=== PATIENT | male | born 1955 | race African-American/Black ===

== ENCOUNTER 2017-04-04 10:40 | Outpatient (CLI) | payer MEDICARE, OTHER ==
[~2017-04-04] VITALS: Ht 188 cm; Wt 109.1 kg
--- NOTE | ~2017-04-04 | HEMODYNAMI ---
PATIENT:TOM MARQUEZ MEDICAL RECORD: [id number] : 51 LOCATION:D.CAT ADMISSION DATE: 04/04/17 Generatedon:04/04/201713:41 Patient name: TOM MARQUEZ Patient #: [id number] SSN: : 1955 Date of study: 04/04/2017 Page: Of Hemodynamic Procedure Report Patient Data Patient Demographics Procedure consent was obtained First Name: TOM Gender: Male Last Name: ALMA : 1955 Middle Initial: F Age: 62 year(s) Patient #: [id number] Race: Black Additional ID: [id number] Contact details Address: [address] State: [place] City: [place] Zip code: [address] Past Medical History Allergies Allergen Reaction Date Comments Reported IV contrast dye 04/04/2017 IV contrast dye 04/04/2017 Iodine 04/04/2017 Admission Admission Data Admission Date: 04/04/2017 Admission Time: 10:40 Height (in.): 72 BSA: 2.3 (m2) Height (cm.): 182.88 BMI: 32.55 (kg/m2) Weight (lbs.): 240 Weight (kg.): 108.86 Lab Results Lab Result Date: 04/04/2017 Lab Result Time: 0:00 Biochemistry Name Units Result Min Max BUN mg/dl 36 --(----)-* 7 18 Creatinine mg/dl 10.5 --(----)-* 0.6 1.3 CBC Name Units Result Min Max Hemoglobin g/dl 11.5 *-(----)-- 13.5 17.5 Procedure Procedure Types Cath Procedure Diagnostic Procedure [facility] w/Coronaries Aortic Root Angiography Miscellaneous Procedures Moderate Sedation up to 15 minutes Procedure Description Procedure Date Procedure Date: 04/04/2017 Procedure Start Time: 13:23 Procedure End Time: 13:41 Procedure Staff Name Function Anton Koch MD Performing Physician Maryse Snell RT Monitor Mounika Hall RT Scrub Damian Britton RN Nurse Procedure Data Cath Procedure Contrast Material Contrast Material Type Amount (ml) Isovue 300 85 Entry Location Entry Primary Successful Side Size Upsize Upsize Entry Closure Succes sful Closure Location (Fr) 1 (Fr) 2 (Fr) Remarks Device Remarks Femoral Right 5 Fr Exoseal vein Estimated blood loss: 5 ml Diagnostic catheters Device Type Used For End Catheter Placement MULTIPACK JL 4.0 5Fr Procedure catheter DIAGNOSTIC JL 5 5Fr Procedure catheter ([id number]) MULTIPACK 3DRC 5Fr Procedure catheter MULTIPACK Pigtail 5 Fr Procedure catheter Procedure Complications No complications Procedure Medications Medication Administration Route Dosage Oxygen NC 2 l/min Heparin Flush Bag added to field 2 bags (1000units/500ml NS) 0.9% NaCl I.V. 100 ml/hr Fentanyl I.V. 50 mcg Versed I.V. 1 mg Fentanyl I.V. 50 mcg Versed I.V. 1 mg Hemodynamics Rest BSA: 2.3 (m2) HGB: 11.5 (g/dl) O2 Consumption: Estimated: 266.53 (ml/min) O2 Con sumption indexed: Estimated:115.88 (ml/min/m) Heart Rate: 68 (bpm) Pressure Samples Time Site Value (mmHg) Purpose Heart Use Rate(bpm) 13:34 LV 90/-14,1 Snapshot 55 13:35 AO 96/55(74) Pullback 66 13:35 LV 81/-7,9 Pullback 66 Gradients Valve Time Site 1 Site 2 Mean SEP/DFP Peak To Heart Use (mmHg) (sec/min) Peak Rate (mmHg) (bpm) Aortic 13:35 LV AO 0 17 0 66 81/-7,9 96/55(74) Calculations Valve P-P Mean Valve Index Valve Source Name Gradient Area Flow (cm2) Aortic 0 0 0 0 Snapshots Pre Cath Intra NCS Post Cath Vital Signs Time Heart Resp SPO2 etCO2 NIBP Rhythm Pain Sedation Rate (ipm) (%) (mmHg) (mmHg) Status Level (bpm) 13:02:34 65 29 100 0 111/73(88) NSR 0 (11) 10(A) , No pain 13:06:44 64 19 99 116/76(93) NSR 0 (11) 10(A) , No pain 13:10:53 65 16 99 27 101/70(85) NSR 0 (11) 10(A) , No pain 13:14:59 64 17 100 21 107/72(89) NSR 0 (11) 10(A) , No pain 13:19:07 64 18 100 37.5 112/69(80) NSR 0 (11) 10(A) , No pain 13:23:17 66 17 100 18 103/68(84) NSR 0 (11) 9(A) , No pain 13:27:25 65 16 100 33 99/66(78) NSR 0 (11) 9(A) , No pain 13:31:29 66 17 100 39.8 105/71(88) NSR 0 (11) 9(A) , No pain 13:35:36 66 16 100 20.2 101/66(80) NSR 0 (11) 9(A) , No pain 13:39:42 66 19 100 37.5 108/71(84) NSR 0 (11) 9(A) , No pain Medications Time Medication Route Dose Verified Delivered Reason Notes Effec tiveness by by 13:06:43 Oxygen NC 2 Anton Damian Per l/min August Britton RN physician 13:06:51 Heparin Flush added 2 Anton Damian used for Bag to bags August Britton label stitcher (1000units/500ml field NS) 13:06:59 0.9% NaCl I.V. 100 Anton Damian Per ml/hr August Britton RN physician 13:11:09 Fentanyl I.V. 50 Anton Damian for mcg August Britton RN sedation 13:11:15 Versed I.V. 1 mg Anton Damian for August Britton RN sedation 13:19:56 Fentanyl I.V. 50 Anton Damian for mcg August Britton RN sedation 13:20:00 Versed I.V. 1 mg Anton Damian for August Britton RN sedation Procedure Log Time Note 12:16:35 Patient Height : 72 inches 12:16:41 Patient Weight : 240 lbs 12:17:49 Diagnostic Cath status Elective 12:17:56 Time tracking: Regular hours 12:18:01 Plan of Care:Hemodynamics will remain stable., Cardiac rhythm will remain stable., Comfort level will be maintained., Respiratory function will remain adequate., Patient/ family verbilizes understanding of procedure., Procedure tolerated without complication., Recovers from procedure without complications.. 12:42:07 Damian Britton RN sent for patient. Start room use. 12:43:46 Lab Result : BUN 36 mg/dl 12:43:46 Lab Result : Creatinine 10.5 mg/dl 12:43:46 Lab Result : Hemoglobin 11.5 g/dl 12:44:49 Patient allergic to IV contrast dye 12:44:55 Patient allergic to IV contrast dye 12:45:27 Patient allergic to Iodine 13:01:28 Vital chart was started 13:05:12 Patient received from Pre/Post Procedure Room to CCL 2 Alert and oriented. Tansferred to table in Supine position. 13:05:13 Warm blankets applied, and regis hugger turned on for patient comfort. 13:05:13 Correct patient and procedure confirmed by team. 13:05:14 ECG and BP/O2 sat monitors applied to patient. 13:05:16 Signed procedure consent form obtained from patient. 13:05:18 Baseline sample Acquired. 13:05:21 Rhythm: sinus rhythm 13:05:22 Full Disclosure recording started 13:05:34 H&P Date Dictated: 03/21/2017 Within 30 days and on chart., H&P Addendum completed by physician on day of procedure. (MUST COMPLETE FOR ALL OUTPATIENTS). 13:05:35 Pre-procedure instructions explained to patient. 13:05:35 Pre-op teaching completed and patient verbalized understanding. 13:05:37 Family in patients room. 13:05:39 Patient NPO since Midnight. 13:05:41 Is the patient allergic to Iodine/contrast media? Yes. 13:05:42 Was the patient premedicated? Yes 13:05:45 Is patient on blood thinner?No 13:05:47 Patient diabetic? Yes. 13:05:48 If diabetic: On Metformin? No 13:05:51 Previous problem with sedation/anesthesia? No ? 13:05:53 Snore? Yes 13:05:54 Sleep apnea? No 13:05:55 Deviated septum? No 13:05:56 Opens mouth fully? Yes 13:05:58 Sticks out tongue? Yes 13:06:00 Airway obstruction? No ? 13:06:06 Dentures? No loose teeth 13:06:13 Pre procedure: right dorsailis pedis pulse 2+ Normal; easily identifiable; not easily obliterated 13:06:16 Patient pain scale 0/10 ?. 13:06:43 Oxygen 2 l/min NC was administered by Damian Britton RN; Per physician; 13:06:49 IV patent on arrival in left forearm with 0.9% NaCl at KVO. 13:06:51 Heparin Flush Bag (1000units/500ml NS) 2 bags added to field was administered by Damian Britton RN; used for procedure; 13:06:53 Lab results completed and on chart. 13:06:56 Right groin area was prepped with chlora-prep and draped in sterile fashion 13:06:57 Alarms reviewed by R. N. 13:06:58 Sharps counted by scrub and verified by R.N. 13:06:59 0.9% NaCl 100 ml/hr I.V. was administered by Damian Britton RN; Per physician; 13:06:59 --------ALL STOP TIME OUT------ 13:07:00 Final Timeout: patient, procedure, and site verified with staff and physician. All members of the team are in agreement. 13:07:01 Right groin site verified by team. 13:07:04 Physical assessment completed. ASA score P 2 - A patient with mild systemic disease as per Anton Koch MD. 13:07:07 Sedation plan: IV Moderate Sedation Medication:Versed, Fentanyl 13:11:09 Fentanyl 50 mcg I.V. was administered by Damian Britton RN; for sedation; 13:11:15 Versed 1 mg I.V. was administered by Damian Britton RN; for sedation; 13:13:34 Use device set Femoral Dx 13:13:36 ACIST Syringe (63869) opened to sterile field. 13:13:43 ACIST Hand Control (24056) opened to sterile field. 13:13:43 ACIST Manifold (23008) opened to sterile field. 13:13:45 Bag Decanter () opened to sterile field. 13:13:48 Tegaderm 4 x 4 (1626W) opened to sterile field. 13:13:52 Medline Cath Pack ([id number]) opened to sterile field. 13:13:53 SHEATH 5FR [place] (MTY416) opened to sterile field. 13:13:53 DIAGNOSTIC WIRE .035 260cm J wire (376023) opened to sterile field. 13:13:58 DIAGNOSTIC Multipack 5Fr catheter set (QH1824) opened to sterile field. 13:13:59 PERCUTANEOUS ENTRY 19GA needle opened to sterile field. 13:15:55 Zero performed for pressure channel P1 13:18:19 Zero performed for pressure channel P1 13:19:56 Fentanyl 50 mcg I.V. was administered by Damian Britton RN; for sedation; 13:20:00 Versed 1 mg I.V. was administered by Damian Britton RN; for sedation; 13:23:37 Procedure started. 13:23:45 Local anesthetic to right femoral artery with Lidocaine 2% by Anton Koch MD.INITIAL ACCESS ONLY 13:25:34 A 5 Fr sheath was inserted into the Right Femoral vein 13:26:09 A MULTIPACK JL 4.0 5Fr catheter was advanced over the wire and used for Procedure. 13:27:30 Catheter removed. 13:27:41 UNABLE TO ENGAGE JL4 13:28:32 A DIAGNOSTIC JL 5 5Fr catheter ([id number]) was advanced over the wire and used for Procedure. 13:29:44 LCA angiography performed. 13:30:22 Catheter removed. 13:31:14 A MULTIPACK 3DRC 5Fr catheter was advanced over the wire and used for Procedure. 13:32:53 Catheter removed. 13:33:46 A MULTIPACK Pigtail 5 Fr catheter was advanced over the wire and used for Procedure. 13:34:06 LV gram done using ELLIS 13:34:09 Injector settings: Ml/sec: 10, Volume: 20, 13:34:46 LV hemodynamics recorded. 13:35:29 EF : 50 % 13:36:31 Aortic Root visualized 13:36:50 Catheter removed. 13:36:51 EXOSEAL 5Fr (EX500) opened to sterile field. 13:37:00 Sheath removed intact; hemostasis achieved with Exoseal to the Right Femoral vein. 13:37:25 Procedure ended.(Physican Out) 13:37:44 Contrast amount:Isovue 300 85ml. 13:37:45 Sharps counted by scrub and verified by R.N. 13:37:51 Post-op/insertion site Right Femoral artery dressed using a 4 x 4 and Tegaderm. 13:37:55 Post right femoral artery:stable, soft, clean and dry 13:38:00 Post procedure: right dorsailis pedis pulse 2+ Normal; easily identifiable; not easily obliterated. 13:38:04 Post-procedure physical assessment completed. ASA score P 2 - A patient with mild systemic disease as per Anton Koch MD. 13:38:07 Post procedure rhythm: unchanged. 13:38:09 Estimated blood loss: 5 ml 13:38:18 Post procedure instruction explained to patient.Patient verbalizes understanding. 13:38:18 Patient needs reinforcement of post procedure teaching. 13:38:52 Procedure type changed to Cath procedure, Diagnostic procedure, LHC, LHC w/Coronaries, Aortic Root Angiography, Miscellaneous Procedures, Moderate Sedation up to 15 minutes 13:40:27 Procedure and supply charges have been captured, reviewed, submitted and are correct. 13:40:29 Procedure Complication : No complications 13:40:57 Vital chart was stopped 13:40:57 See physician's report for complete and final results. 13:40:58 Report given to Pre/Post Procedure Room. 13:41:01 Patient transfered to Pre/Post Procedure Room with Bed. 13:41:03 Procedure ended. 13:41:03 Full Disclosure recording stopped 13:41:08 End room use (Document Last) Device Usage Item Name Manufacture Quantity Catalog Hospital Part Current Minimal Lot# / Number Charge Number Stock Stock Serial# Code ACIST Acist 1 57252 273590 991514 805431 20 Syringe Medical (26782) Systems Inc ACIST Hand Acist 1 91162 779413 803080 080645 5 Control Medical (90948) Systems Inc ACIST Acist 1 20235 092704 797441 994158 5 Manifold Medical (28519) Systems Inc Bag Decanter Microtek 1 2001S 167360 75256 050362 5 (2001S) Medical Inc. Tegaderm 4 x 3M 1 1626W 495147 806542 805578 5 4 (1626W) Medline Cath Cardinal 1 [id number] 118775 09601 682197 5 [facility] ([id number]) SHEATH 5FR Terumo 1 FEQ033 984497 650613 877104 40 [place] (OVA959) DIAGNOSTIC St Eduar 1 545027 302475 375010 186778 30 WIRE .035 260cm J wire (723844) DIAGNOSTIC Cardinal 1 UR6452 024497 75411 345519 30 Multipack Health 5Fr catheter set (CX7431) PERCUTANEOUS Addison Medical 1 J88107 011590 283518 5 ENTRY 19GA needle MULTIPACK JL Cardinal 1 234953 5 4.0 5Fr Health catheter DIAGNOSTIC Cardinal 1 [id number] 693564 868394 065741 5 JL 5 5Fr Health catheter (606535E) MULTIPACK Cardinal 1 203232 5 3DRC 5Fr Health catheter MULTIPACK Cardinal 1 104853 5 Pigtail 5 Fr Health catheter EXOSEAL 5Fr Cardinal 1 EX500 106015 615515 340451 10 (EX500) Health Signature Audit [place] Stage Time Signature Unsigned Intra-Procedure 04/04/2017 Maryse Snell 1:41:25 PM RT(R) Signatures Monitor : Maryse Snell Signature : RT Date : Time : [id number] [place] [address]
[~2017-04-04 10:40] MED LIST: ACEBUTOLOL HCL200 MG PO; CARAFATE1 G PO; CHRONULAC30 ML PO; DULCOLAX10 MG/SUPP RC; FLORINEF 0.1 M0.1 MG PO; ISOSORBIDE DINI20 MG PO; LANTUS SOL100 UNIT/1 SQ; LASIX80 MG PO; LISINOPRIL5 MG PO; MIDODRINE HCL10 MG PO; MIRALAX17 GM PO; NORCO 7.5/325 T1 TA1 PO; PHENERGAN25 M1 PO; RENVELA800 MG PO; SENOKOT-S TABLE1 TAB PO; SENSIPAR30 MG PO; TUMS500 MG PO; ZOFRAN4 MG PO
[2017-04-04] MEDS ORDERED: LANTUS SOL100 UNIT/1 SC (11:02)
[2017-04-04] MEDS ORDERED: NEPHRO-VITE RX1 TAB PO (11:03)
[2017-04-04] MEDS ORDERED: OMEPRAZOLE20 M1 PO (11:03)
[2017-04-04 11:04] VITALS: BP 115/68; Ht 188 cm; Wt 109.1 kg
[2017-04-04] MEDS ORDERED: PREDNISONE20 MG PO (11:04)
[2017-04-04 12:00] LABS: HEMATOCRIT 37.1 % (42.0-54.0); HEMOGLOBIN 11.5 g/dL (13.5-17.5); LYMPHOCYTES 22.1 % (15-50); MCH 27.2 pg (26.0-34.0); MCV 87.7 fL (80.0-100.0); MEAN PLATELET VOLUME 9.6 fL (7.4-10.4); NEUTROPHILS 68.3 % (40-80); PLATELET COUNT 251 10x3/uL (130-400); RBC 4.23 10x6/uL (4.20-6.10); RDW 15.8 % (11.5-14.5); WBC 7.7 10x3/uL (4.8-10.8)
[2017-04-04 12:03] LABS: ANION GAP 13.7 mmol/L (8-16); CALCIUM 9.9 mg/dL (8.5-10.1); CARBON DIOXIDE 34.5 mmol/L (21.0-32.0); CREATININE - SERUM 10.5 mg/dL (0.6-1.3); POTASSIUM - SERUM 4.2 mmol/L (3.5-5.1)
== END 2017-04-04 15:52 | disposition home or self-care (01) ==
LOC: D.CATH 10:40
PROVIDERS: Internal Medicine Cardiovascular Disease
DX: I25.10 Atherosclerotic heart disease of native coronary artery without angina pectoris (principal); Z01.812 Encounter for preprocedural laboratory examination; I12.0 Hypertensive chronic kidney disease with stage 5 chronic kidney disease or end stage renal disease

== ENCOUNTER 2018-04-13 10:05 | Observation (INO) | payer MEDICARE, OTHER ==
[~2018-04-13] VITALS: Ht 188 cm; Wt 107.5 kg
[~2018-04-13 10:05] MED LIST changes: +LANTUS SOL100 UNIT/1 SC; +NEPHRO-VITE RX1 TAB PO; +OMEPRAZOLE20 M1 PO; +PREDNISONE20 MG PO
[2018-04-13 11:07] LABS: BASOPHILS 0.3 % (0-2); HEMATOCRIT 37.3 % (42.0-54.0); HEMOGLOBIN 11.6 g/dL (13.5-17.5); IMMATURE GRANULOCYTES 0.2 % (0-5); LYMPHOCYTES 38.9 % (15-50); MCH 26.9 pg (26.0-34.0); MCHC 31.1 g/dL (31.0-37.0); MCV 86.5 fL (80.0-100.0); MEAN PLATELET VOLUME 10.2 fL (7.4-10.4); MONOCYTES 9.5 % (2-11); NEUTROPHILS 48.1 % (40-80); RBC 4.31 10x6/uL (4.20-6.10); RDW 14.7 % (11.5-14.5)
[2018-04-13 11:13] LABS: ANION GAP 12.5 mmol/L (8-16); CALCIUM 10.1 mg/dL (8.5-10.1); CARBON DIOXIDE 35.8 mmol/L (21.0-32.0); POTASSIUM - SERUM 4.3 mmol/L (3.5-5.1)
[2018-04-13 11:17] LABS: INR 0.99 (0.85-1.17); PROTIME 12.6 SECONDS (11.6-15.0)
[2018-04-13 11:24] LABS: PLATELET COUNT 199 10x3/uL (130-400)
--- NOTE | 2018-04-13 12:46 | NUR ---
RECEIVED PT FROM ER. PT IS AAO AND UP AD DIAZ, RESPONDING APPROPRIATELY TO QUESTIONS. HISTORY, MED REQ, AND QUICKSTART COMPLETED. VSS AND WNL. L.AV FISTULA WITH NO BRUIT AND THRILL. L.HAND PIV IS SALINE LOCKED. RR EVEN AND UNLABORED ON RA. PT DENIES ANY NEEDS. WILL CTM. WILL NOTIFY RN TO COMPLETE CREDIT SUPPORT SPECIALIST.
[2018-04-13 16:38] VITALS: BP 93/68
--- NOTE | 2018-04-13 19:31 | NUR ---
REPORT RECEIVED. PT LYING IN BED WITH EYES OPEN, RR EVEN AND UNLABORED. BED IN LOW POSITION. NO S/S OF DISTRESS NOTED. INTRODUCED SELF TO PT. PT DENIES FURTHER NEEDS AT THIS TIME. CALL LIGHT IN REACH. WILL CTM.
[2018-04-13 20:00] VITALS: BP 101/47
--- NOTE | 2018-04-14 02:23 | NUR ---
PT LYING IN BED WITH EYES CLOSED, RR EVEN AND UNLABORED. BED IN LOW POSITION. SIDE RAILS UP X2. NO S/S OF DISTRESS. CALL LIGHT IN REACH. WILL CTM.
[2018-04-14 04:00] VITALS: BP 104/64
[2018-04-14 04:48] VITALS: BP 101/47; BMI 30.5
--- NOTE | 2018-04-14 05:19 | NUR ---
PT LYING IN BED WITH EYES CLOSED, RR EVEN AND UNLABORED. BED IN LOW POSITION. NO S/S OF DISTRESS NOTED. CALL LIGHT IN REACH. WILL CTM.
[2018-04-14 05:55] LABS: BASOPHILS 0.2 % (0-2); HEMATOCRIT 33.1 % (42.0-54.0); HEMOGLOBIN 10.3 g/dL (13.5-17.5); IMMATURE GRANULOCYTES 0.2 % (0-5); LYMPHOCYTES 46.2 % (15-50); MCH 26.5 pg (26.0-34.0); MCHC 31.1 g/dL (31.0-37.0); MCV 85.3 fL (80.0-100.0); MEAN PLATELET VOLUME 10.3 fL (7.4-10.4); MONOCYTES 8.7 % (2-11); NEUTROPHILS 40.7 % (40-80); PLATELET COUNT 179 10x3/uL (130-400); RBC 3.88 10x6/uL (4.20-6.10); RDW 14.6 % (11.5-14.5)
[2018-04-14 06:08] LABS: ANION GAP 12.4 mmol/L (8-16); CALCIUM 9.4 mg/dL (8.5-10.1); CARBON DIOXIDE 34.5 mmol/L (21.0-32.0); CREATININE - SERUM 12.7 mg/dL (0.6-1.3); POTASSIUM - SERUM 4.9 mmol/L (3.5-5.1)
--- NOTE | 2018-04-14 07:15 | NUR ---
REPORT RECIEVED AND MORNING ROUNDING COMPLETE. PT LAYING IN BED AWAKE, ASKED ABOUT HIS SURGERY TODAY. PT STATES HE IS READY TO EAT. PT STATES NO NEEDS AT THIS TIME UNLESS I CAN BRING HIM SOME FOOD. CALL LIGHT WITHIN REACH AND BED IN LOWEST POSITION.
[2018-04-14 09:40] VITALS: BP 88/55
--- NOTE | 2018-04-14 10:03 | NUR ---
RESTS WITH EYES CLOSED. CALL LIGHT IN REACH. WILL MONITOR NEEDS.
[2018-04-14 11:35] VITALS: Ht 188 cm; Wt 107.5 kg
[2018-04-14 13:51] VITALS: BP 102/62
--- NOTE | 2018-04-14 18:03 | NUR ---
PT LEFT FOR VIA BED AND HOSPITAL STAFF.
--- NOTE | 2018-04-14 19:40 | NUR ---
EVENING ROUNDS COMPLETED. REPORT RECEIVED. PT CURRENTLY UNAVAIABLE, PT IS IN SURGERY. INTRODUCED SELF TO PT YOUNGER BROTHER AMADO. WILL CTM.
--- NOTE | 2018-04-14 21:46 | NUR ---
PT BACK TO FLOOR FROM SURGERY, OXYGEN AT 3 LITERS BY NASAL CANNULA. VSS STABLE. HEPARIN INFUSING ORDERED. REPORT TAKEN FROM BELKIS CLAY RN. MICK LOWERY.
--- NOTE | 2018-04-14 22:14 | NUR ---
PT LEFT FLOOR BY BED TO DIALYSIS.
--- NOTE | 2018-04-14 22:21 | NUR ---
RUTH EARLY RENAL NURSE PRACTITIONER HAS BEEN NOTIFIED PT HAS RETURNED TO FLOOR FROM SURGERY.
--- NOTE | 2018-04-15 01:43 | NUR ---
PT HAS ARRIVED BACK TO FLOOR BY BED FROM DIALYSIS. WILL CTM.
--- NOTE | 2018-04-15 02:17 | NUR ---
HELPED PT TO ADJUST IN BED, PT DENIES FURTHER NEEDS AT THIS TIME. HEPARIN INFUSING ORDERED THROUGH LEFT HAND PIV. NO S/S OF DISTRESS NOTED. CALL LIGHT IN REACH. WILL CTM.
[2018-04-15 02:26] LABS: BASOPHILS 0 % (0-2); EOSINOPHILS 0 % (0-7); HEMATOCRIT 34.7 % (42.0-54.0); HEMOGLOBIN 11.3 g/dL (13.5-17.5); IMMATURE GRANULOCYTES 0.3 % (0-5); LYMPHOCYTES 8.1 % (15-50); MCH 27.2 pg (26.0-34.0); MCHC 32.6 g/dL (31.0-37.0); MCV 83.6 fL (80.0-100.0); MEAN PLATELET VOLUME 10.8 fL (7.4-10.4); MONOCYTES 1.4 % (2-11); NEUTROPHILS 90.2 % (40-80); PLATELET COUNT 189 10x3/uL (130-400); RBC 4.15 10x6/uL (4.20-6.10); RDW 14.3 % (11.5-14.5)
[2018-04-15 02:36] LABS: WBC 6.5 10x3/uL (4.8-10.8)
[2018-04-15 04:00] VITALS: BP 93/54
--- NOTE | 2018-04-15 04:21 | NUR ---
PT LYING IN BED WITH EYES CLOSED, RR EVEN AND UNLABORED. BED IN LOW POSITION. NO S/S OF DISTRESS NOTED. CALL LIGHT IN REACH. WILL CTM.
--- NOTE | 2018-04-15 04:43 | NUR ---
RN ROUNDS. ASSESSED. PT RESTING WITH NON LABORED RESPIRATIONS, CALL LIGHT IN REACH. MONITOR AND CPOC.
--- NOTE | 2018-04-15 07:30 | NUR ---
RECEIVED A/A/OX4. DENIES ANY PAIN OR DISCOMFORT AT THIS TIME AND VOICES NO REQUESTS. HEP DRIP PATENT AND INFUSING WELL TO LEFT HAND WITHOUT REDNESS OR EDEMA. BED IN LOWEST POSITION, SIDERAILS UP X 2 AND CALL LIGHT IN REACH. ASSESSMENT COMPLETED AND WILL CONTINUE POC.
[2018-04-15 09:27] VITALS: BP 93/54
[2018-04-15] MEDS ORDERED: COUMADIN5 MG PO (09:44)
[2018-04-15 12:05] VITALS: BP 98/64
--- NOTE | 2018-04-15 13:04 | NUR ---
NO NEEDS VOICED AT THIS TIME. CALL LIGHT IN REACH. WILL MONITOR.
--- NOTE | 2018-04-15 15:00 | NUR ---
DISCHARGE INSTUCTIONS REVIEWED WITH PT AND VERBALIZES UNDERSTANDING WITH NO QUESTIONS. SALINE LOCK REMOVED WITH TIP INTACT. LEFT FLOOR VIA W/C WITH ALL PERSONAL BELONGINGS AND LEFT FACILITY VIA PRIVATE VEHICLE WITH HIS DAUGHTER.
--- NOTE | 2018-04-16 09:02 | MORECARE ---
CASE MANAGEMENT DISCHARGE SUMMARY PATIENT: TOM MARQUEZ UNIT: [id number] ADM DATE: 04/13/18 AGE: 63 : [birth year] SEX: M ROOM/BED: D.2103 AUTHOR: NICOLE ZAMAN PHYSICIAN: REFERRING PHYSICIAN: JOSE DE JESUS POWELL MD DATE OF SERVICE: 04/16/18 Discharge Plan Patient Name[facility]QUEZ [facility] [facility] 1955 Planned Disposition: Home Anticipated Discharge Date: 04/15/18 Discharge Date: 04/15/2018 Expected LOS: 2 Initial Reviewer: [email or web address] Initial Review Date: 04/16/2018 Generated: 04/16/18 10:02 am Coverage Notice Reviewer: [email or web address] Etienne Ibarra Notice Issued Date-Time: 04/13/2018 11:19 Notice Type: Medicare Outpatient Observation Notice Notice Delivered To: Patient Relationship to Patient: Senior Stock Plan Administrator Name: Delivery Method: HAND - Hand Delivered Ledy Days: Prior Verbal Notification: Recipient Understood Notice: Yes Recipient Signature: Yes Med Rec Note Co-signed by Attending: Coverage Notice Comment: Patient Name: TOM MARQUEZ Page [phone] at 0902 All edits/amendments must be made on the electronic document DICTATION DATE: 04/16/18900 BRAZER HELPER INDUCTION: UMESH 04/16/18900 RPT#: [id number] DC DATE:04/15/18 STATUS: DIS IN [facility] [address] [place] [address] END OF REPORT
== END 2018-04-15 15:30 | disposition home or self-care (01) ==
LOC: D.ER 10:05 → D.EDHOLD 11:17 → D.M2 11:17 → OBSVTIME 18:00 → D.M2 04-15 15:30
PROVIDERS: Family Medicine; Surgery; ADMIT Internal Medicine
DX: T82.858A Stenosis of other vascular prosthetic devices, implants and grafts, initial encounter (principal); Y83.8 Other surgical procedures as the cause of abnormal reaction of the patient, or of later complication, without mention of misadventure at the time of the procedure; E11.22 Type 2 diabetes mellitus with diabetic chronic kidney disease; I12.0 Hypertensive chronic kidney disease with stage 5 chronic kidney disease or end stage renal disease; N18.6 End stage renal disease; Z99.2 Dependence on renal dialysis; D63.1 Anemia in chronic kidney disease

== ENCOUNTER 2019-01-22 05:30 | Day surgery (SDC) | payer MEDICARE, OTHER ==
[2019-01-21 15:03] LABS: BASOPHILS 0.2 % (0-2); EOSINOPHILS 2.9 % (0-7); HEMATOCRIT 33.3 % (42.0-54.0); HEMOGLOBIN 10.2 g/dL (13.5-17.5); IMMATURE GRANULOCYTES 0.3 % (0-5); LYMPHOCYTES 32.8 % (15-50); MCH 26.4 pg (26.0-34.0); MCHC 30.6 g/dL (31.0-37.0); MEAN PLATELET VOLUME 9.2 fL (7.4-10.4); MONOCYTES 9.5 % (2-11); NEUTROPHILS 54.3 % (40-80); PLATELET COUNT 205 10x3/uL (130-400); RBC 3.87 10x6/uL (4.20-6.10); RDW 15.7 % (11.5-14.5); WBC 6.5 10x3/uL (4.8-10.8)
[2019-01-21 15:40] LABS: INR 0.97 (0.85-1.17); PROTIME 12.4 SECONDS (11.6-15.0)
[2019-01-21 15:42] LABS: ANION GAP 14.5 mmol/L (8-16); CALCIUM 9.5 mg/dL (8.5-10.1); CARBON DIOXIDE 30.8 mmol/L (21.0-32.0); CREATININE - SERUM 7.9 mg/dL (0.6-1.3); POTASSIUM - SERUM 4.3 mmol/L (3.5-5.1)
[~2019-01-22] VITALS: Ht 188 cm; Wt 104.3 kg
[~2019-01-22 05:30] MED LIST changes: +COUMADIN5 MG PO
[2019-01-22 06:36] VITALS: BP 102/60; Ht 188 cm; Wt 104.3 kg
[2019-01-22] MEDS ORDERED: INSULIN (06:58)
[2019-01-22] MEDS ORDERED: HYDROCODON-ACE1 EAC7 PO (10:51)
--- NOTE | 2019-01-22 14:30 | OP ---
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 POSTOPERATIVE DIAGNOSES: End-stage renal disease and dependence on hemodialysis and a nonfunctional right radiocephalic arteriovenous fistula with aneurysmal deterioration and proximal stenosis secondary to inch long stenosis/effective occlusion of a right brachial vein. OPERATION PERFORMED: Open revision with implantation of PTFE jump graft without need for thrombectomy. SURGEON: Nneka Jurado MD ANESTHESIA: Regional nerve block and general per SATELLITE TECHNICIAN. PREOPERATIVE NOTE: Mr. Cheng is a 63-year-old -[place] male from [place] who is on chronic hemodialysis. He has a right forearm brachiocephalic AV fistula with 2 large cannulation aneurysms and a large runoff vessel on the dorsum of the hand. He has a patent, but essentially pulseless median cubital vein draining the fistula up to the antecubital space. Previous fistulograms have demonstrated a severe stricture there and wishing to avoid placing a stent across the antecubital space. He was referred to me and I brought him to the operating room with the initial intent of creating a brachial to translocated basilic vein arteriovenous fistula. He is presently dialyzing with a right internal jugular tunneled dialysis catheter. DESCRIPTION OF PROCEDURE: Under nerve block and general anesthesia per SATELLITE TECHNICIAN, the patient was prepped and draped in sterile manner. I examined him with ultrasound and found that actually the drainage was not via the basilic vein or across the antecubital space and distal upper arm, but actually was through the deep perforating vein and then the brachial veins, which were joined by the basilic vein only to about mid arm. I elected to go ahead with an open revision without thrombectomy. The fistula was being kept open in large part by flow through the dorsal tributary. This, I also elected to leave alone. I made an S-shaped incision across the antecubital space and exposed the deep brachial veins proximal and distal to an inch long stenosis. Tributaries were controlled with Silastic loops. The vein was occluded and opened to the distal segment first. The vein was flushed with heparinized saline. I chose a 6-mm straight standard wall thickness Propaten [place] PTFE graft bevelled one end and anastomosed it end of graft to side of vein with continuous running 6-0 Prolene. The suture line was then treated with some Fibrillar hemostatic material and the occluding loops are released, and the suture line was hemostatic. The graft and veins of the forearm were then flushed with heparinized saline and the graft clamped. It was then shortened and bevelled and anastomosed end of graft to side of vein to the proximal end of the basilic vein done also after local heparinization and done with running 6-0 Prolene. When this last anastomosis OPERATIVE REPORT [id number] TOM CHENG BENJAMIN was completed and the occluding loops and clamps were released, the suture lines were both hemostatic and excellent flow was present in the patient's fistula. Flow in the dorsal collateral vein was much reduced and I did not feel it needed to be ligated today. The patient's wound was irrigated with Ancef and gentamicin solution and closed with interrupted inverted 3-0 Vicryl and then running intracuticular 4-0 Stratafix. The incision was sealed with Dermabond glue and dressed with Maxorb Ag, Tegaderm, and Cavilon skin prep. He was awakened and taken to the recovery room. He will be discharged to home and come back to see me in my office next week. He will continue to dialyze using his tunneled dialysis catheter until after that initial office visit, probably after that will be able to begin using his fistula. He takes Coumadin chronically. He has been off it for 5 days. I will have him resume his usual daily dose tomorrow. We will continue all of his other same home medications and renal diabetic diet and usual dialysis schedule. TRANSINT:[id number] Voice Confirmation ID: [id number] DOCUMENT ID: [id number] cc: [facility]. NNEKA JURADO MD at 1430 CC: MIKE GODOY [id number] DICTATION DATE: 01/22/191115 TOE TRIMMER: 01/22/19 1147 [facility] 01/22/19 [facility] [address] [place] [address]
== END 2019-01-22 13:05 | disposition home or self-care (01) ==
LOC: D.OPS 05:30 → D.PAN 08:00 → D.OPS 08:00
PROVIDERS: Surgery; ATTEND Internal Medicine Nephrology
DX: T82.510A Breakdown (mechanical) of surgically created arteriovenous fistula, initial encounter (principal); Y83.9 Surgical procedure, unspecified as the cause of abnormal reaction of the patient, or of later complication, without mention of misadventure at the time of the procedure; T82.858A Stenosis of other vascular prosthetic devices, implants and grafts, initial encounter; N18.6 End stage renal disease; Z99.2 Dependence on renal dialysis

== ENCOUNTER → 2019-11-19 12:15 | Outpatient (CLI) | payer MEDICARE, OTHER ==
[2019-01-22 06:36] VITALS: BMI 29.6
[~2019-11-19 12:15] MED LIST changes: +HYDROCODON-ACE1 EAC7 PO; +INSULIN
== END | disposition home or self-care (01) ==
LOC: D.HCCECHO 12:15
PROVIDERS: ATTEND Internal Medicine Cardiovascular Disease
DX: I25.10 Atherosclerotic heart disease of native coronary artery without angina pectoris (principal)

== ENCOUNTER → 2020-08-13 09:57 | Outpatient (CLI) | payer MEDICARE, OTHER ==
[2020-01-29 11:09] VITALS: BMI 27.6
[~2020-08-13 09:57] MED LIST changes: +LOVENOX40 MG/0.4 SC
== END | disposition home or self-care (01) ==
LOC: D.HCCARDIO 08-11 09:30
PROVIDERS: ATTEND Internal Medicine Cardiovascular Disease
DX: I25.10 Atherosclerotic heart disease of native coronary artery without angina pectoris (principal)

== ENCOUNTER → 2020-08-18 08:38 | Outpatient (CLI) | payer MEDICARE, OTHER ==
[2020-01-29 11:09] VITALS: BMI 27.6
--- NOTE | ~2020-08-18 | ST ---
PATIENT:TOM MARQUEZ MEDICAL RECORD: [id number] SEX: M LOCATION:[facility] ORDER #: ADMISSION DATE: 08/18/20 AGE OF PATIENT: 65 REFERRING PHYSICIAN: INTERPRETING PHYSICIAN: SELENE LEIGH MD DATE OF SERVICE: 08/18/2020 NUCLEAR STRESS TEST: Gated: Normal. Normal wall motion, normal wall thickening, calculated EF 57%. SPECT imaging: SPECT imaging was performed. Short axis view: Short axis view shows good uptake along the anterior wall, lateral wall, and inferior wall. Horizontal axis: Confirms good uptake along the anterior wall and inferior wall. Vertical axis: Vertical axis shows good uptake along the lateral wall and septum. FINAL IMPRESSION: 1. Normal gated, normal wall motion, normal EF 57%. 2. Normal SPECT imaging. FINAL RECOMMENDATION: This gentleman with ongoing symptoms, the scan shows low risk for any significant myocardial ischemia or previous myocardial infarction. LV function remains normal. Continue risk factor modification is recommended. TRANSINT:[id number] Voice Confirmation ID: [id number] DOCUMENT ID: [id number] SELENE LEIGH MD CC: [id number] DICTATION DATE: 08/18/20 1524 TRAFFIC SIGNAL SUPERVISOR MAINTENANCE: 08/19/20 0414 DEP CLI 08/18/20 [id number] [place] [address]
== END | disposition home or self-care (01) ==
LOC: D.HCCARDIO 08:38
PROVIDERS: ATTEND Internal Medicine Interventional Cardiology
DX: I25.10 Atherosclerotic heart disease of native coronary artery without angina pectoris (principal)